=== PATIENT | female | born 1955 | race Caucasian/White ===

== ENCOUNTER 2017-07-19 13:14 | Day surgery (SDC) | END 2017-07-19 18:47 | disposition home or self-care (01) ==

== ENCOUNTER → 2017-10-09 | Outpatient (CLI) | END | disposition home or self-care (01) ==

== ENCOUNTER → 2017-11-13 | Outpatient (CLI) | END | disposition home or self-care (01) ==

== ENCOUNTER → 2017-12-25 | Outpatient (CLI) | END | disposition home or self-care (01) ==

== ENCOUNTER → 2018-01-16 | Outpatient (CLI) | END | disposition home or self-care (01) ==

== ENCOUNTER → 2018-02-08 | Outpatient (CLI) | END | disposition home or self-care (01) ==

== ENCOUNTER → 2018-04-19 | Outpatient (CLI) | payer OTHER ==
[~2018-04-19] MED LIST: ERGO500013 PO; OMEP20CA16 PO; TRAM50TA PO
--- NOTE | 2018-04-19 18:01 | CONS ---
Consult Date/Type/Reason Admit Date/Time Initial Consult Date Date/Time of Note DATE: 04/19/18 TIME: 17:57 Subjective This is a 63-year-old female following up for left TKA pain. She was last seen 3 months ago. At that time there was concern for instability of her left TKA and possible loosening. She had a three-phase bone scan done approximately 1 year after TKA. It was positive along the tibia. Given that this was only 1 year after surgery and could have been secondary to postsurgical changes she was started with physical therapy at last visit. Her pain is increased. She is very frustrated by this pain. She is now 1-1/2 years after surgery. Infection workup was negative with ESR, CRP, WBC within normal limits. Objective Vitals weight: 176 pounds Height: 5 foot 5 inch Temperature: 90.1 Heart Rate: 85 Blood Pressure: 149/86 Respiratory Rate: 12 Exam General: Alert, oriented x3. No Acute Distress. Heart: Regular rate and rhythm. Lungs: No respiratory distress. No accessory muscle use. Left lower Extremity: Incision well-healed. No skin breakdown, no surrounding erythema. Sensation intact to light touch in a sural, saphenous, deep peroneal, superficial peroneal, medial and lateral plantar nerve distribution. Motor is intact, patient able to dorsiflex and plantarflex ankle and extend and flex great toe. Dorsalis Pedis pulse +2, Brisk capillary refill. Compartments are soft. There is a +2 effusion. There is tenderness to palpation along the medial joint line along the proximal medial tibial plateau. ROM: Extension: 0 Flexion: 120 Varus/ Valgus Stability: Instability with valgus stress in extension, flexion, and especially in midflexion. There is a soft endpoint to the MCL. A/P Stability: Mild to moderate instability Gait: Moderate pace. Mildly antalgic. Slight varus thrust. Neutral alignment. No gait aid. Results/Medications Home Meds Reported Medications Ergocalciferol (Vitamin D2) (VITAMIN D2) 50,000 Unit Capsule, 85039 UNIT PO ONCE A MONTH, CAP 07/19/17 Tramadol Hcl* (Ultram*) 50 Mg Tablet, 75 MG PO Q6H PRN for PAIN, TAB 07/19/17 Omeprazole* (Omeprazole*) 20 Mg Capsule.dr, 20 MG PO DAILY, #30 CAP 07/19/17 Assessment/Plan Hospital Course (Demo Recall) 63-year-old female 1/2 years status post left total knee arthroplasty by another surgeon. Her continued knee pain is secondary to instability with possible loosening. Her last three-phase bone scan was done 6 months ago. I think it would be worthwhile to obtain a new three-phase bone scan to evaluate for progression versus resolution of the increased uptake along the tibia. Based on results of bone scan and x-rays at next visit we will discuss possible revision left TKA. Plan: Three-phase bone scan Follow-up after bone scan. At follow-up Obtain 4 views bilateral knees and bone length study. EMMA SALMON MD Apr 19, 2018 18:01
== END | disposition home or self-care (01) ==
LOC: HKI 11:16
PROVIDERS: ATTEND Orthopaedic Surgery Adult Reconstructive Orthopaedic Surgery
DX: M25.562 Pain in left knee (principal); Z96.652 Presence of left artificial knee joint
CPT/HCPCS: G0463

== ENCOUNTER → 2018-06-13 | Outpatient (CLI) | payer OTHER ==
--- NOTE | 2018-06-13 17:53 | CONS ---
Consult Date/Type/Reason Admit Date/Time Initial Consult Date Date/Time of Note DATE: 06/13/18 TIME: 17:48 Subjective 63-year-old female following up today to review bone scan results for her left knee pain for possible loosening and instability. States symptoms are unchanged. She continues to have an effusion and difficulty walking. Denies fevers and chills Objective Vitals Weight: 178 pound Height: 5 foot 5 inches BMI: 29.6 Temperature: 90 point Heart Rate: 83 Blood Pressure: 139/80 Respiratory Rate: 12 Exam General: Alert, oriented x3. No Acute Distress. Heart: Regular rate and rhythm. Lungs: No respiratory distress. No accessory muscle use. Left lower Extremity: Incision well-healed. No skin breakdown, no surrounding erythema. Sensation intact to light touch in a sural, saphenous, deep peroneal, superficial peroneal, medial and lateral plantar nerve distribution. Motor is intact, patient able to dorsiflex and plantarflex ankle and extend and flex great toe. Dorsalis Pedis pulse +2, Brisk capillary refill. Compartments are soft. There is a +2 effusion. There is tenderness to palpation along the medial joint line along the proximal medial tibial plateau. ROM: Extension: 0 Flexion: 120 Varus/ Valgus Stability: Instability with valgus stress in extension, flexion, and especially in midflexion. There is a soft endpoint to the MCL. A/P Stability: Mild to moderate instability Gait: Moderate pace. Mildly antalgic. Slight varus thrust. Neutral alignment. No gait aid. Results/Medications Home Meds Reported Medications Ergocalciferol (Vitamin D2) (VITAMIN D2) 50,000 Unit Capsule, 43708 UNIT PO ONCE A MONTH, CAP 07/19/17 Tramadol Hcl* (Ultram*) 50 Mg Tablet, 75 MG PO Q6H PRN for PAIN, TAB 07/19/17 Omeprazole* (Omeprazole*) 20 Mg Capsule.dr, 20 MG PO DAILY, #30 CAP 07/19/17 Imaging Three-phase bone scan from outside facility was personally reviewed. Bone scan demonstrates continued increased uptake along the tibial implant. This is especially increased under the medial portion of the tibial baseplate. This is consistent with loosening. Assessment/Plan Hospital Course (Demo Recall) This is a 63-year-old female with left total knee arthroplasty pain. Infection work-up has been negative. Work-up for loosening is positive with a repeat three-phase bone scan. In addition on examination she has instability. The patient wishes to proceed with revision surgery. Benefits and risks were reviewed with the patient. Schedule patient for revision left total knee arthroplasty. Preoperative clearance. A lengthy discussion ensued, where the patient was told that if and when the symptoms are intolerable, elective total knee revision should be considered. The operative procedure was explained using diagrams and or three-dimensional models. The rehabilitation, the potential risks, benefits and alternatives were discussed at length. Specific risks discussed included but were not limited to excessive blood loss and the need for transfusion and therefore the risk of transmissible disease or transfusion reaction, deep infection and the potential need for repetitive debridements, implant removal, long-term antibiotic therapy, possibly requiring deep venous access, extensor mechanism complications, including subluxation or dislocation, disruption of the quadriceps or patellar tendon, fracture of the patella or avulsion of the tibial tuberosity, femoral, tibial or fibular fracture and the need for further surgery for fixation, neurovascular injury with temporary or permanent numbness, tingling, weakness or paralysis, arterial injury requiring surgery including possible amputation, deep venous thrombosis, pulmonary embolism and , persistent pain, weakness, or limp, late aseptic loosening and the need for revision, polyethylene wear-induced osteolysis and related problems, post-operative stiffness requiring closed manipulation, and finally, a wide variety of unanticipated medical problems. The opportunity to ask questions and address any concerns was provided. The patient would like to proceed with scheduling. EMMA SALMON MD Jun 13, 2018 17:53
== END | disposition home or self-care (01) ==
LOC: HKI 10:51
PROVIDERS: ATTEND Orthopaedic Surgery Adult Reconstructive Orthopaedic Surgery
DX: Z47.1 Aftercare following joint replacement surgery (principal); Z96.652 Presence of left artificial knee joint
CPT/HCPCS: G0463